=== PATIENT | male | born 1960 | race African-American/Black ===

== ENCOUNTER 2017-11-10 10:48 | Emergency (ER) | payer OTHER, SELFPAY ==
[~2017-11-10] VITALS: Ht 177.8 cm; Wt 90.0 kg
[~2017-11-10 10:48] MED LIST: ASPI81TA87 PO; OXYC-43
[2017-11-10 11:02] LABS: GLUCOSE,POINT OF CARE 160 MG/DL (70-110)
[2017-11-10] MEDS ORDERED: GLIP10 PO (11:04)
[2017-11-10] MEDS ORDERED: SITA100 PO (11:04)
[2017-11-10] MEDS ORDERED: ASPI-556 PO (11:04)
[2017-11-10] MEDS ORDERED: LISI-662 PO (11:04)
[2017-11-10] MEDS ORDERED: HYDR25TA PO (11:04)
[2017-11-10] MEDS ORDERED: IBUPROFEN 800 MG TABLET PO ONE (11:45)
[2017-11-10] MEDS ORDERED: POVIDONE-IODINE 10% 15 ML SOLUTION UD TP ONE (11:45)
[2017-11-10 12:11] VITALS: BP 149/88
== END 2017-11-10 12:33 | disposition home or self-care (01) ==
LOC: EMS 10:50
DX: S01.01XA Laceration without foreign body of scalp, initial encounter (principal); E11.9 Type 2 diabetes mellitus without complications; I10 Essential (primary) hypertension; Y08.89XA Assault by other specified means, initial encounter; Y93.89 Activity, other specified; Y92.89 Other specified places as the place of occurrence of the external cause; Y99.8 Other external cause status
CPT/HCPCS: 82962; 99283

== ENCOUNTER 2024-02-19 08:56 | Emergency (ER) | payer MEDICARE, OTHER ==
[~2024-02-19] VITALS: Ht 177.8 cm; Wt 77.3 kg
[~2024-02-19 08:56] MED LIST changes: +ASPI-556 PO; -ASPI81TA87 PO; +GLIP10TA10 PO; +HYDR25TA2 PO; +LISI-894 PO; -OXYC-43; +SITA100 PO
[2024-02-19 11:36] VITALS: TEMP 98.2
[2024-02-19 12:45] VITALS: BP 120/74; PULSE 70; RESP 18
== END 2024-02-19 13:24 | disposition home or self-care (01) ==
LOC: EMS 08:56
DX: S09.90XA Unspecified injury of head, initial encounter (principal); E11.9 Type 2 diabetes mellitus without complications; I10 Essential (primary) hypertension; Z98.890 Other specified postprocedural states; W22.8XXA Striking against or struck by other objects, initial encounter; Y93.89 Activity, other specified; Y92.89 Other specified places as the place of occurrence of the external cause; Y99.8 Other external cause status
CPT/HCPCS: 70450; 82962; 99284

== ENCOUNTER → 2024-10-17 | Emergency (ER) | payer MEDICARE, OTHER ==
[~2024-10-17] VITALS: Ht 177.8 cm; Wt 87.7 kg
[~2024-10-17] MED LIST changes: -GLIP10TA10 PO
[2024-10-17 20:34] VITALS: BP 118/76; PULSE 80; RESP 16; TEMP 98.2; O2SAT 97
[2024-10-17] MEDS: LIDOCAINE 5% TRANSDERMAL PATCH TD ONE (23:51)
[2024-10-17] MEDS: KETOROLAC TROMETHAMINE 30 MG/ML VIAL IM ONE (23:51)
== END | disposition home or self-care (01) ==
LOC: EMS 20:26
DX: S39.012A Strain of muscle, fascia and tendon of lower back, initial encounter (principal); Z79.82 Long term (current) use of aspirin; Z79.84 Long term (current) use of oral hypoglycemic drugs; Z79.899 Other long term (current) drug therapy; V89.2XXA Person injured in unspecified motor-vehicle accident, traffic, initial encounter; Y93.89 Activity, other specified; Y92.410 Unspecified street and highway as the place of occurrence of the external cause; Y99.8 Other external cause status
CPT/HCPCS: 99283; 96372; J1885